=== PATIENT | male | born 1965 | race Caucasian/White ===

== ENCOUNTER 2021-03-22 22:28 | Emergency (ER) | payer BC ==
--- NOTE | 2021-03-23 00:35 | CR ---
Indication: Fall Technique: Frontal view femur Comparison: None Findings: Bones: Alignment is normal. No fractures or bone lesions. Partial visualization of internal fixation hardware in the proximal tibia. Joint spaces: Minimal degenerative changes in the left hip joint. Soft tissues: Unremarkable. Impression: No acute abnormality. Minimal degenerative changes in the left hip joint. Dictated by Lisa Driver MD @ 03/23/2021 12:34:30 AM (Electronically Signed)
--- NOTE | 2021-03-23 00:37 | CR ---
Indication: Fall Technique: Two-view left hip Comparison: None Findings: Bones: Alignment is normal. No fractures or bone lesions. Joint spaces: Minimal degenerative changes in the left hip joint. Soft tissues: Unremarkable. Impression: No acute abnormality. Dictated by Lisa Driver MD @ 03/23/2021 12:35:40 AM (Electronically Signed)
[2021-03-23] MEDS ORDERED: Diphtheria,Pertussis(Acell),Tetanus Vaccine 0.5 ML Syringe IM ONE (00:51)
--- NOTE | 2021-03-23 01:06 | EDM.PDOC ---
ED HPI GENERAL MEDICAL PROBLEM - General Chief Complaint: Lower Extremity Injury/Pain Stated Complaint: FELL ON METAL Time Seen by Provider: 03/23/21 00:32 Source of Information: Reports: Patient History Limitations: Reports: No Limitations - History of Present Illness INITIAL COMMENTS - FREE TEXT/NARRATIVE: 55-year-old male presents for laceration to left posterior thigh. Patient fell off of a vehicle and scraped the back of his leg on a protruding piece of metal. Tetanus is not up-to-date. Left Upper Leg Pain Score (Numeric/FACES): 3 - Related Data Allergies Allergy/AdvReac Type Severity Reaction Status Date / Time codeine Allergy Hives Verified 03/23/21 00:43 Home Meds: Home Meds . [No Known Home Meds] 03/23/21 [History] Past Medical History - Past Health History Medical/Surgical History: Denies Medical/Surgical History Social & Family History - Tobacco Use Tobacco Use Status *Q: Former Tobacco User Used Tobacco, but Quit: Yes Month/Year Tobacco Last Used: 5 yrs ago - Recreational Drug Use Recreational Drug Use: No Review of Systems - Review of Systems Review Of Systems: Comprehensive ROS is negative, except as noted in HPI. ED EXAM, GENERAL - Physical Exam Exam: See Below Exam Limited By: No Limitations General Appearance: Alert, WD/WN, No Apparent Distress Ears: Hearing Grossly Normal Throat/Mouth: Normal Voice, No Airway Compromise Head: Atraumatic, Normocephalic Respiratory/Chest: No Respiratory Distress, No Accessory Muscle Use Cardiovascular: Normal Peripheral Pulses Extremities: Normal Inspection Neurological: Alert, Normal Cognition, Normal Gait Psychiatric: Normal Affect, Normal Mood Skin Exam: Warm, Dry, Intact, Normal Color, Other (3 cm avulsion injury to left posterior thigh, patient super glued it prior to arrival) ED TRAUMA EXTREMITY PROCEDURES - Laceration/Wound Repair Left Posterior Thigh Lac/Wound Length In cm: 3 Appearance: Subcutaneous Distal NVT: Neuro & Vascular Intact Anesthetic Type: Local Local Anesthesia - Lidocaine (Xylocaine): 1% with EPI Local Anesthetic Volume: 5cc Skin Prep: Chlorhexidine (Hibiciens) Saline Irrigation (cc's): 50 Exploration/Debridement/Repair: Wound Explored Closed With: Sutures Suture Size: 3-0 # of Sutures: 4 Suture Type: Nylon, Interrupted, Simple Sterile Dressing Applied: Nurse Tetanus Status Addressed: Yes Complications: No Course - Vital Signs Last Recorded V/S: Last Vital Signs Temp 98.1 F 03/23/21 00:33 Pulse 73 03/23/21 00:33 Resp 14 03/23/21 00:33 BP 141/84 H 03/23/21 00:33 Pulse Ox 99 03/23/21 00:33 - Orders/Labs/Meds Orders: Active Orders 24 hr Category Date Time Status Vaccine to be Administered/Admin Charge [RC] ASDIRECTED Care 03/23/21 00:51 Active Meds: Medications Discontinued Medications Generic Name Dose Route Start Last Admin Trade Name Freq PRN Reason Stop Dose Admin Diphtheria/Tetanus/Acell Pertussis 0.5 ml 03/23/21 00:51 Diphtheria,Pertussis(Acell),Tetanus Vaccine 0.5 Ml Syringe IM 03/23/21 00:52 .ONCE ONE - Re-Assessments/Exams Free Text/Narrative Re-Assessment/Exam: 03/23/21 01:04 Patient did superglue the wound prior to arrival which made repair difficult. There is also an avulsion injury with a good chunk of skin missing. I approximated it as best I could, see procedure note. Departure - Departure Time of Disposition: 01:05 Disposition: Home, Self-Care 01 Condition: Good Clinical Impression: Laceration - Discharge Information Instructions: Laceration Care, Adult, [id number] Referrals: PCP,None [Primary Care Provider] - Additional Instructions: Please return in 10 days for suture removal. The following information is given to patients seen in the emergency department who are being discharged to home. This information is to outline your options for follow-up care. We provide all patients seen in our emergency department with a follow-up referral. The need for follow-up, as well as the timing and circumstances, are variable depending upon the specifics of your emergency department visit. If you don't have a primary care physician on staff, we will provide you with a referral. We always advise you to contact your personal physician following an emergency department visit to inform them of the circumstance of the visit and for follow-up with them and/or the need for any referrals to a consulting specialist. The emergency department will also refer you to a specialist when appropriate. This referral assures that you have the opportunity for follow-up care with a specialist. All of these measure are taken in an effort to provide you with optimal care, which includes your follow-up. Under all circumstances we always encourage you to contact your private physi navya who remains a resource for coordinating your care. When calling for follow- up care, please make the office aware that this follow-up is from your recent emergency room visit. If for any reason you are refused follow-up, please contact the [facility] Emergency Department at and asked to speak to the emergency department charge nurse. Please follow up with your primary care physician. If you do not have a primary care physician, see below: [facility] [address] [place] [id number] [address] [facility] [address] [place] [id number] [facility] [address] [place] [id number] Sepsis Event Note (ED) - Evaluation Sepsis Screening Result: No Definite Risk - Focused Exam Vital Signs: Vital Signs Temp Pulse Resp BP Pulse Ox 03/23/21 00:33 98.1 F 73 14 141/84 H 99 - My Orders Last 24 Hours: My Active Orders 03/23/21 00:51 Vaccine to be Administered/Admin Charge [RC] ASDIRECTED - Assessment/Plan Last 24 Hours: My Active Orders 03/23/21 00:51 Vaccine to be Administered/Admin Charge [RC] ASDIRECTED
== END 2021-03-23 01:35 | disposition home or self-care (01) ==
LOC: MW.ED 22:28
DX: S71.112A Laceration without foreign body, left thigh, initial encounter (principal); Z88.5 Allergy status to narcotic agent; Z23 Encounter for immunization; Z72.0 Tobacco use; W26.8XXA Contact with other sharp object(s), not elsewhere classified, initial encounter
CPT/HCPCS: 12002; 73502-26-LT; 73502-LT; 73551-26-LT; 73551-LT; 90471; 90715; 99283-25